=== PATIENT | male | born 1960 | race American Indian/Alaskan Native ===

== ENCOUNTER 2018-10-11 14:01 | Outpatient (CLI) | payer BC ==
[2018-10-11 15:26] LABS: BUN/Creatinine Ratio 11; Blood Urea Nitrogen 9 mg/dL (9-20); Calcium 9.4 mg/dL (8.4-10.2); Hemolysis Index 14
== END 2018-10-11 14:02 | disposition home or self-care (01) ==
LOC: LAB 14:01
PROVIDERS: ATTEND Surgery
DX: K43.9 Ventral hernia without obstruction or gangrene (principal)
CPT/HCPCS: 36415; 80048

== ENCOUNTER 2018-11-15 07:10 | Observation (INO) | payer BC ==
--- NOTE | 2018-11-15 07:05 | Short Stay Summary ---
Short Stay Documentation Date of service: 11/15/18 - History H&P: obtained from office - Allergies and Medications Current Medications: Allergies No Known Allergies Allergy (Unverified 10/11/18 14:01) Home Medications Medication Instructions Recorded Confirmed Last Taken Type No Known Home Medications [No 11/11/18 11/11/18 Unknown History Reported Home Medications] Active Medications Celecoxib (Celebrex) 200 mg PO PREOP NR Stop: 11/15/18 23:00 Fentanyl (Sublimaze) 100 mcg IV ONCE PRN PRN Reason: sedation for nerve block Stop: 11/15/18 23:59 Gabapentin (Neurontin) 1,200 mg PO PREOP LITO Stop: 11/15/18 23:00 Lactated Ringer's (Lactated Ringers) 1,000 mls @ 42 mls/hr IV DIRECT LITO Cefazolin Sodium 3 gm/ Sodium (Chloride) 100 mls @ 100 mls/30 min IV PREOP NR; Protocol Stop: 11/15/18 23:00 Midazolam HCl (Versed) 2 mg IV PREOP NR Stop: 11/15/18 23:59 - Brief post op/procedure progress note Date of procedure: 11/15/18 (dictation:[id number]) Pre-op diagnosis: Incarcerated ventral hernia Post-op diagnosis: other (Incarcerated ventral hernia and umbilical hernia) Procedure: Robotic assisted laparoscopic ventral and umbilical hernia IVF - 1200cc UOP ~200cc EBL min Anesthesia: GETA Findings: large ventral hernia with incarcerated small bowel and omentum. Small adjacent umbilical hernia Surgeon: MARIXA UMAÑA (Asst: Maia Pacheco) Estimated blood loss: minimal Pathology: none Condition: stable - Hospital course Hospital course: admitted for pain control after surgery. It appears as though we got behind in his pain control. He stayed an extra day for which we readjusted his pain protocol. He was feeling much better on POD#2. He was discharged in stable cond ition. VSS. Looks well. breathing non-labored. Abd soft, protuberant, appropriately tender in midline. No peritoneal signs. Incisions C/D/I. f/u in 7- 10days. - Disposition Condition at discharge: Stable Disposition: DC-01 TO HOME OR SELFCARE Short Stay Discharge Plan Diet: regular Wound: open to air, keep clean and dry Special Instructions: no heavy lifting Additional Instructions: Post Operative Instructions Activity - No heavy lifting. Wound - Keep clean and dry and open to air. No driving until cleared by surgeon. May shower tomorrow. Pat dry the wound or wounds. Apply an ice pack to the wound or wounds for 10-20 minutes at a time. Do this at least 4-5 times a day. You can do it more if he would like. Please wear the abdominal binder during the day. You may remove it at night if you have trouble sleeping. May remove for showering. Alternate the use of ibuprofen and Tylenol for the first 2 days. I want you to take these on a scheduled basis. Take 600 mg of ibuprofen every 6 hours. Take 500 mg of Tylenol every 6 hours. You should alternate these 2 medicines. In other words, beginning with the ibuprofen. After 3 hours, take the Tylenol. Keep alternating the 2 drugs every 3 hours. Do this on a scheduled basis for the first 2 days. After that, you can take them as needed. It is very important that you use the prescription pain medicine only for very severe pain. Do not take the prescription medicine before you try using the ibuprofen and Tylenol. May use either Dulcolax or Senekot for constipation. Please do not strain to have a bowel movement. We will call you in a couple of days to see how youre doing. If you have any questions or concerns, always feel free to call the clinic at any time. Follow up with: RUBEN MORALES MD [Primary Care Provider] - 7 Days MARIXA UMAÑA MD [Staff Physician] - 7 Days Forms: Outpatient Surgery DC Inst. Prescriptions: HYDROcodone/APAP 5-325 [Mozelle 5-325 mg TAB] 2 each PO Q6H PRN #30 tablet PRN Reason: Pain , Severe (7-10) Ondansetron [Zofran Odt] 4 mg PO Q8HR PRN #10 tab.rapdis PRN Reason: Nausea And Vomiting
[~2018-11-15 07:10] MED LIST: LACTATED RINGERS 1,000 ML IV SCH; NEURONTIN PO SCH; SUBLIMAZE IV PRN; TYLENOL PO ONE; VERSED IV NR; ceFAZolin 3 GM in NACL 0.9% 100 ML IV NR
[2018-11-15] MEDS ORDERED: DECADRON ONE ×2 (07:45→12:42)
[2018-11-15] MEDS ORDERED: MARCAINE-EPI 0.25%-1:200,000 INFILTRATI ONE (07:45)
--- NOTE | 2018-11-15 07:55 | Anesthesia Consultation ---
Anesthesia Consult and Med Hx Date of service: 11/15/18 - Airway Anesthetic Teeth Evaluation: Good ROM Head & Neck: Adequate Mental/Hyoid Distance: Adequate Mallampati Class: Class II Intubation Access Assessment: Probably Good - Pulmonary Exam CTA: Yes - Cardiac Exam Cardiac Exam: RRR - Pre-Operative Health Status ASA Pre-Surgery Classification: ASA2 Proposed Anesthetic Plan: General Nerve Block: TAP - Pulmonary Hx Smoking: Yes (QUIT SEPTEMBER 2018) Hx Respiratory Symptoms: No COPD: No Hx Sleep Apnea: No - Cardiovascular System Hx Hypertension: No Hx Heart Attack/AMI: No Hx Percutaneous Transluminal Coronary Angioplasty (PTCA): No Hx Cardia Arrhythmia: No - Central Nervous System Hx Seizures: No CVA: No Hx Psychiatric Problems: No - Gastrointestinal Hx Gastroesophageal Reflux Disease: No - Endocrine Hx Renal Disease: No Hx Liver Disease: No Hx Insulin Dependent Diabetes: No Hx Non-Insulin Dependent Diabetes: No Hx Thyroid Disease: No - Hematic Hx Anemia: No - Other Systems Hx Obesity: Yes - Additional Comments Anesthesia Medical History Comments: No hx anesthetic complications.
--- NOTE | 2018-11-15 07:56 | Anesthesia Day of Surgery ---
Anesthesia Day of Surgery - Day of Surgery Patient Examined: Yes Patient H&P Reviewed: Yes Patient is NPO: Yes
[2018-11-15] MEDS ORDERED: TYLENOL PO NR (09:00)
[2018-11-15] MEDS ORDERED: ZEMURON IV ONE ×2 (09:19→11:10)
[2018-11-15] MEDS ORDERED: DILAUDID ONE (09:19)
[2018-11-15] MEDS ORDERED: XYLOCAINE MPF 2% ONE (09:19)
[2018-11-15] MEDS ORDERED: DIPRIVAN 10 MG/ML IV ONE (09:20)
[2018-11-15] MEDS ORDERED: XYLOCAINE 1% 20 mL ONE (09:58)
[2018-11-15] MEDS ORDERED: MARCAINE 0.5% INFILTRATI ONE (09:58)
[2018-11-15] MEDS ORDERED: NACL 0.9% IR ONE (11:02)
[2018-11-15] MEDS ORDERED: BRIDION IV ONE (12:03)
[2018-11-15] MEDS ORDERED: ZOFRAN ONE (12:42)
[2018-11-15] MEDS ORDERED: SUBLIMAZE ONE (12:42)
[2018-11-15] MEDS ORDERED: TORADOL ONE (12:46)
[2018-11-15] MEDS ORDERED: ROBINUL ONE (13:05)
[2018-11-15] MEDS ORDERED: BLOXIVERZ ONE (13:05)
[2018-11-15] MEDS: DILAUDID IV PRN ×4 (13:28→14:08)
[2018-11-15] MEDS: NORCO 5/325 PO PRN ×2 (14:25→22:53)
--- NOTE | 2018-11-15 14:28 | Post Anesthesia Evaluation ---
- Post Anesthesia Evaluation Patient Participated: Yes Airway Patent: Yes Stable Respiratory Function: Yes Nausea/Vomiting: No Temp > 96.8F: Yes Pain Manageable: Yes Adequeate Hydration: Yes Anesthesia Complications: No
[2018-11-15] MEDS: TYLENOL PO SCH ×2 (16:36→22:54)
[2018-11-15] MEDS: IBUPROFEN PO SCH ×2 (16:37→22:53)
--- NOTE | 2018-11-15 16:45 | Event Note ---
Date: 11/15/18 Went to check on patient. He is having pain at the upper incisions only. The area of the hernia repair does not hurt. I think the YESSENIA block may not have gotten that high and we did not inject local into those areas because of the pre-op YESSENIA block. Pt stable.
[2018-11-16] MEDS: IBUPROFEN PO SCH ×2 (04:55→10:17)
[2018-11-16] MEDS: TYLENOL PO SCH ×4 (04:56→21:27)
[2018-11-16] MEDS: DILAUDID IV PRN ×3 (06:44→19:04)
[2018-11-16] MEDS ORDERED: NARCAN 0.4 MG/1 ML IV PRN (13:31)
[2018-11-16] MEDS ORDERED: NORCO 5/325 PO PRN (13:32)
--- NOTE | 2018-11-16 13:36 | Progress Note ---
Assessment and Plan - Patient Problems (1) Ventral hernia Current Visit: Yes Status: Acute Plan to address problem: Pt stable. s/p robotic assisted ventral and umbo hernia repair - POD#1. Pt looks better, but has a lot of pain in the area of the flap creation. I think we have gotten behind on his pain control. He does not want to bother the staff and so has not gotten much pain meds. 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 Encouraged use 4) laxative 5) Encouraged ambulation. Subjective Date of service: 11/16/18 Patient Reports: Positive: still having pain (7-8 in the upper center of abdomen. Rest of abdomen has no pain), tolerating a regular diet, no bowel movement. Negative: nausea, vomiting Objective Vital Signs - 12hr 11/16/18 11/16/18 11/16/18 04:11 07:26 08:23 Temperature 98.3 F 98.2 F Pulse Rate 81 88 Respiratory 20 18 Rate Blood Pressure 150/95 131/79 O2 Sat by Pulse 97 93 97 Oximetry 11/16/18 12:01 Temperature 97.7 F Pulse Rate 76 Respiratory 18 Rate Blood Pressure 139/89 O2 Sat by Pulse 96 Oximetry - General physical appearance no distress, no pain, other (looks much better than yesterday) - Eyes normal occular movement - Respiratory normal expansion, normal respiratory effort - Abdomen soft, tender (only in upper midline), not distended (protuberant abdomen), not guarding, not rigid - Integumentary no rash, no growths, no abnormal pigmentation - Psychiatric oriented to time, oriented to person, oriented to place, speech is normal, memory intact
[2018-11-16] MEDS ORDERED: DULCOLAX PO ONE (14:00)
[2018-11-16] MEDS ORDERED: DILAUDID PCA 6MG/30ML IV SCH (14:00)
[2018-11-16] MEDS: TORADOL IV SCH ×3 (15:26→23:54)
[2018-11-16] MEDS: SENOKOT S PO SCH ×2 (15:27→21:28)
--- NOTE | 2018-11-16 22:09 | Operative Report ---
PREOPERATIVE DIAGNOSIS: Incarcerated symptomatic ventral hernia. POSTOPERATIVE DIAGNOSES: Incarcerated ventral hernia and umbilical hernia. PROCEDURE: Robotically-assisted laparoscopic ventral and umbilical hernia repairs with mesh. ATTENDING SURGEON: Winifred Clark MD SHELL MOLD BONDING MACHINE OPERATOR: Maia Pacheco ESTIMATED BLOOD LOSS: Minimal. FLUIDS: 1200 mL. URINE OUTPUT: 200 mL. FINDINGS: The patient had a large ventral hernia with incarcerated small bowel. Dimensions were approximately 5 x 7 cm. The patient was also found to have a small adjacent umbilical hernia that was about 2 cm in diameter. IMPLANT: Ventralight ST mesh 10 x 15 cm. DRAINS: None. COMPLICATIONS: None. DISPOSITION: Stable, transferred to Recovery Room. INDICATIONS: This is a 58-year-old male who presented to the office with complaints of progressively worsening abdominal bulge and pain. The patient is assessed to be in need for surgery. CT scan was done, which showed small bowel and omentum in the hernia sac. Procedure, risks, and benefits were explained to the patient. Risks included but were not limited to infection, bleeding, pain, injury to surrounding structures, possible need for further procedures in the future. Of note, the patient reports that he had stopped smoking 3 weeks prior to surgery. TAP block was done prior to surgery. OPERATIVE NOTE: The patient was brought to the operating room and placed on the table in supine position. After adequate general anesthesia was found, the patient was prepped and draped in the usual sterile fashion. Arms were tucked. SCDs were in place. Antibiotics have been given. Timeout was called. We began by placing a Veress needle in left upper quadrant. I was able to insufflate on the first attempt. Ports were placed across the upper abdomen, 4 ports were placed, one 12 and three 8 mm ports, all were placed under direct vision. The initial port was a 5 mm port that I placed using the Optiview technique after the abdomen was insufflated. I entered the peritoneal cavity safely. There was no injury to the underlying structures. There was no injury to the area under the Veress needle. I began by placing gauze and sutures in the abdomen prior to docking the robot. The patient was in a slightly Trendelenburg position and flexed. We then proceeded to dock the robot and I proceeded over to the console. I began by making a peritoneal flap. I took down the peritoneum. This went fairly smoothly. We then arrived at the hernia. Please note that prior to docking, we were able to manually push back all the contents into the peritoneal cavity. We reduced everything completely. No traction was required. We were able to push everything from the outside. Continuing on, we dissected down to the hernia sac. I reduced as much as I could, but the sac was so large, I felt that there was no real value to try to spend all the extra time trying to get all of the sac down. Therefore, I excised an area around the hernia opening as my plan was I had so much extra sac that I was going to be able to easily close that. Once that was done, I then continued down another 6 cm going distally to have a nice wide area. In the dissection, I found that there was also a small umbilical hernia that had fat incarcerated in there, we reduced that. We ended up having a very nice wide dissection such that I could easily place a 10 x 15 cm mesh that appeared to lay very well. The 15 was going across the abdomen that covered both hernias very nicely. Before I secured the mesh to close the fascia, I closed that peritoneal defect. This came together very nicely using a 3-0 V-Loc suture. I then proceeded to close the fascial defects. I closed with 1 stitch using 0 V-Loc suture. I began at the umbilical hernia site and then I went all the way across and included the ventral hernia. It came together very easily. Once this was done, I then placed the mesh, it laid very nicely. There was no wrinkling. It was completely flat. I secured it to the anterior abdominal wall with four 2-0 Vicryl sutures. I then proceeded to close the peritoneal defect with a 3-0 V-Loc suture. This closed very nicely. We placed an Angiocath needle through the hernia sac skin in order to decompress that area a bit. Please note that in closing that fascial defect of the ventral hernia, I did take a couple of bites of the sac in order to pull it down to minimize that space to hopefully minimize seroma formation. Everything was hemostatic at the end, everything looked very good. We then transitioned back to a laparoscopic case. I removed the gauze and all the needles, counts were correct. We removed the 12 mm port, closed that fascial defect with a Chuck-Christy fascial closure device using 0 Vicryl stitch. The other ports were removed. We desufflated the abdomen. We tried to squeeze as much air as possible through the Angiocath; however, it did not work as well as I would like, there was still a little bit of air left in there, but it was better. Angiocatheter was removed. The patient had TAP block, so no local was used. Of note, the patient did have pain outside of the area of the TAP block, which was the high incisions across the upper abdomen. This is what led to eventually him staying overnight in the hospital for pain control. Rest of the abdomen had minimal discomfort. Skin sites were closed with 4-0 Monocryl subcuticular stitches. Skin was cleaned and dried. Dermabond was placed. The patient tolerated the procedure well. There were no complications. All counts were correct at the end of the case. The patient had a Ferreira placed during the case, this was removed at the end of the case. JOB# [id number] CAITY/KARLA
[2018-11-16] MEDS ORDERED: ZOFRAN IV PRN (23:12)
[2018-11-17] MEDS: TORADOL IV SCH (05:30)
[2018-11-17] MEDS: TYLENOL PO SCH (05:32)
[2018-11-17 08:34] VITALS: BP 132/91
[2018-11-17] MEDS: SENOKOT S PO SCH (09:20)
== END 2018-11-17 12:30 | disposition home or self-care (01) ==
LOC: OR 07:10 → 3B-SURG 15:14
PROVIDERS: ADMIT Surgery; ATTEND Surgery
DX: K43.9 Ventral hernia without obstruction or gangrene (principal); K42.9 Umbilical hernia without obstruction or gangrene; F17.200 Nicotine dependence, unspecified, uncomplicated
CPT/HCPCS: 49653; 64450; 96374; 96375; 96376; C1781; G0378; J0690; J1100; J1170; J1885; J2250; J2405; J2704; J2710; J3010; J7120; S2900